=== PATIENT | female | born 1995 | race Caucasian/White ===

== ENCOUNTER 2020-03-23 14:42 | Emergency (ER) | payer OTHER, MEDICAID ==
[~2020-03-23] VITALS: Ht 170.2 cm; Wt 77.1 kg
[2020-03-23 14:49] VITALS: BP 108/45
[2020-03-23] MEDS ORDERED: NORCO 5-325 TA1 EAC2 PO (14:58)
[2020-03-23] MEDS ORDERED: FLEXERIL PO (14:58)
[2020-03-23] MEDS ORDERED: IBUPROFEN 800800 M1 PO (14:58)
[2020-03-23] MEDS ORDERED: PENICILLIN VK500 MG PO (14:58)
== END 2020-03-23 15:18 | disposition home or self-care (01) ==
LOC: M.ERS 14:42
DX: M26.602 Left temporomandibular joint disorder, unspecified (principal); K02.9 Dental caries, unspecified